=== PATIENT | male | born 1960 | race Caucasian/White ===

== ENCOUNTER 2024-10-23 13:31 | Emergency (ER) | payer MEDICARE, SELFPAY ==
[2024-10-23] VITALS (12 sets, daily range): BP systolic 138–164; BP diastolic 88–98; PULSE 67–69; BMI 25.0
--- NOTE | 2024-10-23 14:04 | ED.GENMED ---
History of Present Illness
<SADIE Daigle - Last Filed: 10/23/24 20:17>
General
Chief Complaint: Dizziness
Source: patient
Exam Limitations: none
Time Seen by Provider: 10/23/24 13:50
Nursing documentation reviewed up to this point in time: agreed with
History of Present Illness
History of Present Illness:
Patient is a 63-year-old male presents to the ER for evaluation of dizziness. Patient woke up at 6 AM and had a little headache. He reports he has chronic headaches and that is not new for him. He is on migraine medicine for that. However at 7
AM after walking to the bathroom he started to feel dizzy. He reports intermittently since then he has had a dizzy sensation where the room has been intermittently spinning and he does get nauseous and has been dry heaving/vomiting bile with his
symptoms. Symptoms occur with position change. He denies any recent injury/trauma. As stated above he does have chronic headaches and is on a triptan for that and does have chronic neck soreness. He denies any symptoms of dizziness now. Does
have a mild headache. He does report he was anxious about symptoms and had a little episode of chest discomfort about an hour prior to arrival which is what prompted him to come to the ER. With the chest discomfort he had no associated shortness
of breath radiation of pain or diaphoresis.
Review of Systems
<SADIE Daigle - Last Filed: 10/23/24 20:17>
Review of Systems
Allergies reviewed?: Yes
All Other Systems: ROS reviewed and negative except as documented in HPI and ROS
Constitutional: Reports no symptoms; Denies fever, fatigue or chills
Cardiac: Reports chest pain (had chest tightness which has since resolved. )
Phy Exam
<SADIE Daigle - Last Filed: 10/23/24 20:17>
General Physical Exam
General Presentation: no apparent distress
General age: appears stated age
General Skin: warm and dry
General Habitus: normal
General Mental: alert
General Hydration: appears well hydrated
Eye Exam
Eye Exam: PERRL, EOMI and other (No nystagmus bilaterally)
Eye Exam General: PERRL: bilateral and EOM intact: bilateral
Pupil Exam: Bilateral: round and reactive
Cardiovascular Exam
Cardiovascular Exam: regular rate/rhythm, no murmur and normal peripheral pulses
Pulmonary Exam
Pulmonary Exam: lungs clear and no respiratory distress
Neurological Exam
Neurological Exam: alert and no sensory deficits
Cerebellar
Cerebellar Function: normal finger to nose
Musculoskeletal Exam
Musculoskeletal Exam: full ROM
Skin Exam
Skin Exam: normal color and warm/dry
Psychiatric Exam
Psychiatric Exam: normal mood/affect
Course
<SADIE Daigle - Last Filed: 10/23/24 20:17>
Orders/Labs/Results
Orders:
Orders
10/23/24 13:32
Electrocardiogram (*1) Urgent
Reason for Study: Vertigo / Dizzy
EKG- Treatment ONCE
10/23/24 14:00
Cardiac Monitoring- Treatment ONCE
IV Insert/Care/Rem.- Treatment PRN
0.9% Sodium Chloride 1000 ml [Nss] 1,000 ml IV BOLUS
Meclizine [Antivert] 25 mg PO NOW STA
10/23/24 14:01
Electrocardiogram (*1) Stat
Reason for Study: Other
Other Reason for Exam: chest pain
EKG- Treatment ONCE
10/23/24 14:03
CT Head W/o Iv Contrast Urgent
Comment:
Reason For Exam: new onset vertigo
10/23/24 14:09
Complete Blood Count/With Diff Urgent
Comprehensive Metabolic Panel Urgent
Troponin I Urgent
Abnormal Lab Results
10/23/24
14:09
WBC 12.0 H 10^3/uL
(4.8-10.8)
Absolute Neuts (auto) 10.4 H 10^3/uL
(1.4-6.5)
Absolute Lymphs (auto) 1.0 L 10^3/uL
(1.2-3.4)
Neutrophils % 86.8 H %
(42.2-75.2)
Lymphocytes % 8.6 L %
(20.5-51.1)
Glucose 166 H mg/dl
(70-99)
Calcium 10.4 H mg/dl
(8.4-10.2)
10/23/24 14:09
10/23/24 14:09
Vital Signs
Initial and Last Documented VS:
Initial Vital Signs
Temp Pulse Resp BP Pulse Ox
97.9 F 76 16 157/95 100
10/23/24 13:36 10/23/24 13:36 10/23/24 13:36 10/23/24 13:36 10/23/24 13:36
Last Documented Vital Signs
Temp Pulse Resp BP Pulse Ox
97.9 F 66 18 139/95 100
10/23/24 13:36 10/23/24 17:17 10/23/24 17:17 10/23/24 17:17 10/23/24 17:17
<Shaka Rodriguez DO - Last Filed: 10/23/24 14:32>
Orders/Labs/Results
Orders:
Orders
10/23/24 13:32
Electrocardiogram (*1) Urgent
Reason for Study: Vertigo / Dizzy
EKG- Treatment ONCE
10/23/24 14:00
Cardiac Monitoring- Treatment ONCE
IV Insert/Care/Rem.- Treatment PRN
0.9% Sodium Chloride 1000 ml [Nss] 1,000 ml IV BOLUS
Davidlizine [Antivert] 25 mg PO NOW STA
10/23/24 14:01
Electrocardiogram (*1) Stat
Reason for Study: Other
Other Reason for Exam: chest pain
EKG- Treatment ONCE
10/23/24 14:03
CT Head W/o Iv Contrast Urgent
Comment:
Reason For Exam: new onset vertigo
10/23/24 14:09
Complete Blood Count/With Diff Urgent
Comprehensive Metabolic Panel Urgent
Troponin I Urgent
Abnormal Lab Results
10/23/24
14:09
WBC 12.0 H 10^3/uL
(4.8-10.8)
Absolute Neuts (auto) 10.4 H 10^3/uL
(1.4-6.5)
Absolute Lymphs (auto) 1.0 L 10^3/uL
(1.2-3.4)
Neutrophils % 86.8 H %
(42.2-75.2)
Lymphocytes % 8.6 L %
(20.5-51.1)
Glucose 166 H mg/dl
(70-99)
Calcium 10.4 H mg/dl
(8.4-10.2)
10/23/24 14:09
10/23/24 14:09
Vital Signs
Initial and Last Documented VS:
Initial Vital Signs
Temp Pulse Resp BP Pulse Ox
97.9 F 76 16 157/95 100
10/23/24 13:36 10/23/24 13:36 10/23/24 13:36 10/23/24 13:36 10/23/24 13:36
Last Documented Vital Signs
Temp Pulse Resp BP Pulse Ox
97.9 F 66 18 139/95 100
10/23/24 13:36 10/23/24 17:17 10/23/24 17:17 10/23/24 17:17 10/23/24 17:17
<SADIE Daigle - Last Filed: 10/23/24 20:17>
MDM/Problems Addressed
Differential Diagnosis Includes:
not limited to : BPV
MDM/Problems Addressed:
Symptoms are consistent with benign positional vertigo. No concerning evidence for central vertigo/cva. No trauma or pain associated with vertebral dissection .
patient presents asymptomatic here in the ER and has not had any symptoms throughout the ED visit. He has a normal neurological exam including normal finger-nose steady brisk gait without any ataxia, no nystagmus. He does have a mild headache this
is not new for patient he does have a history of chronic headaches and does take a triptan. His CT was negative. He was given meclizine to prevent symptoms from reoccurring.
White count was minimally reactive likely stress response sugar was mildly elevated discussed with patient to follow-up with his family
Patient evaluated ED physician stable for discharge home no acute concerning findings on exam
<SADIE Daigle - Last Filed: 10/23/24 20:17>
*Critical Care Note
Total Time (30-74mins, 75-104mins- exclusive of procedures): Not Applicable
ED Attending Note
<SADIE Daigle - Last Filed: 10/23/24 20:17>
-
Portions of this chart may have been created with voice recognition software.� Occasional wrong word or��sound alike� substitutions may have occurred due to the inherent limitations of voice recognition software.
<Shaka Rodriguez DO - Last Filed: 10/23/24 14:32>
ED Attending Note
Patient seen and examined by attending physician: Yes
I performed the substantive portion of visit, reviewed & personally made and approve the management plan that is documented in note by myself or JOSE.: Yes
Discharge Plan
Departure
Patient Disposition: Home (Routine Discharge)
Date of Disposition: 10/23/24
Time of Disposition: 16:57
Patient with high blood pressure during this ER visit?: Yes
Condition: Fair
Covid-19: Not Applicable
Discharge Problem:
Vertigo
Instructions: Vertigo (a Type of Dizziness) (DC), BLOOD PRESSURE
Prescriptions:
New
meclizine 25 mg tablet
25 mg PO TID PRN (Reason: motion sickness) Qty: 10 0RF
Referrals:
Shaka Tom, [Family Provider] -
Activity Restrictions/Additional Instructions:
As discussed a prescription for meclizine was sent to your pharmacy take as directed. Stay well-hydrated. Follow-up with family doctor in the next several days for reevaluation of your symptoms return if any worsening of symptoms.
As documented your blood sugar was very minimally elevated, have this rechecked by your family doctor
Interventions
Interventions:
*Risk Screen - Suicide Last Done: 10/23/24 13:36
*General Assessment Last Done: 10/23/24 14:17
*Neglect/Abuse Screening Last Done: 10/23/24 13:36
*ED- Fall Risk Assessment Last Done: 10/23/24 14:17
*ED COVID-19 Vaccine History Last Done: 10/23/24 14:21
*Nursing Disposition Last Done: 10/23/24 17:18
ED- Neurological Assessment Last Done: 10/23/24 14:17
ED Swallowing Screen Last Done: 10/23/24 14:17
Discharge Date and Time
Discharge Date/Time: 10/23/24 17:18
Print Language: [place] CITIZ[place]
[2024-10-23] MEDS: NSS 1000 IV (14:11)
[2024-10-23] MEDS: ANTIVERT 25 MG PO (14:16)
[2024-10-23 14:30] LABS: % Basophils 0.3 % (0-2); % Eosinophils 0.3 % (0-6); % Immature Granulocytes 0.3 % (0-0.5); % Lymphocytes 8.6 % (20.5-51.1); % Monocytes 3.7 % (1.7-9.3); % Neutrophils 86.8 % (42.2-75.2); Absolute Monocytes 0.5 10^3/uL (0.1-0.6); Absolute Neutrophils 10.4 10^3/uL (1.4-6.5); Hematocrit 39.7 % (39.0-52.0); Hemoglobin 14.1 g/dL (13.0-18.0); Mean Corp Hgb Conc. 35.5 g/dL (33.0-37.0); Mean Corpuscular Hgb 29.6 pg (27.0-31.0); Mean Corpuscular Volume 83.2 fL (80.0-94.0); Mean Platelet Volume 8.7 fL (7.4-10.4); Nucleated Red Blood Cells % 0 % (-); Platelet Count 276 10^3/uL (130-400); Red Blood Cell Count 4.77 10^6/uL (4.70-6.10); Red Cell Dist. Width 12.1 % (11.5-14.5)
[2024-10-23 14:46] LABS: ALT (SGPT) 37 U/L (0-50); AST (SGOT) 39 U/L (17-59); Alkaline Phosphatase 71 U/L (38-126); Blood Urea Nitrogen 16 mg/dl (9-20); Calcium 10.4 mg/dl (8.4-10.2); Carbon Dioxide 23 mmol/L (22-30); Chloride 100 mmol/L (98-107); Estimated Creatinine Clearance 109 ml/min; Glucose 166 mg/dl (70-99); Sodium 136 mmol/L (135-145); Total Bilirubin 1.3 mg/dl (0.2-1.3); Total Protein 7.5 g/dl (6.3-8.2); eGFR > 60.00
[2024-10-23 14:54] LABS: Troponin I < 0.012 ng/ml
== END 2024-10-23 17:18 | disposition home or self-care (01) ==
LOC: EMR 13:31
PROVIDERS: Nurse Practitioner; EMERGENCY PHYSICIAN Emergency Medicine; FAMILY PHYSICIAN Family Medicine
DX: R42 Dizziness and giddiness (principal); R51.9 Headache, unspecified; R07.89 Other chest pain; E16.2 Hypoglycemia, unspecified
CPT/HCPCS: 70450; 80053; 84484; 85025; 93005; 99284

== ENCOUNTER → 2025-02-08 09:33 | Outpatient (REF) | payer MEDICARE, SELFPAY | LOC: HWRAD 09:33 | PROVIDERS: ATTENDING PHYSICIAN Family Medicine | DX: E78.5 Hyperlipidemia, unspecified (principal) | CPT/HCPCS: 75571 ==